=== PATIENT | female | born 1930 | race Caucasian/White ===

== ENCOUNTER 2016-09-14 15:02 | Inpatient (IN) | payer OTHER, BC ==
[~2016-09-14] VITALS: Ht 157.5 cm; Wt 54.8 kg
[~2016-09-14 15:02] MED LIST: ASPIRIN81 M2 PO; BUPROPION HCL75 MG PO; BUSPAR10 MG PO; COSOPT EYE DROPS5 ML BOTH EYES; DEPAKOTE SPRIN125 MG PO; GLUCOPHAGE500 MG PO; HYDRALAZINE HCL25 MG PO; LISINOPRIL30 MG PO; MACROBID100 MG PO; MICRONASE1.25 MG PO; PROBIOTIC1 EAC1 PO; PROTONIX40 MG PO; RISAMINE OINTM113 GM TP; SYNTHROID88 MCG PO; VITAMIN D-32000 UNI2 PO; XALATAN2.5 ML BOTH EYES; ZOFRAN ODT4 MG PO
[2016-09-14 15:33] LABS: HEMATOCRIT 47.9 % (36.0-46.0); MCH 28.3 PG (29.0-34.0); MCHC 31.1 G/DL (30.0-36.0); MCV 91.1 FL (83-99); NRBC (%) 0.2 /100 WBC (0-0); RBC DIS.WIDTH-CV 14.6 % (11.8-14.6); RBC DIS.WIDTH-SD 49.2 % (39-53); RED BLOOD COUNT 5.26 M/uL (3.80-5.20); WHITE BLOOD COUNT 10.6 K/uL (4.1-10.2)
[2016-09-14 15:56] LABS: CHLORIDE 104 mEq/L (99-109); POTASSIUM 3.8 mEq/L (3.7-5.4); SODIUM 142 mEq/L (136-147)
[2016-09-14 15:57] LABS: GLUCOSE 268 mg/dL (70-99)
[2016-09-14 15:58] LABS: TROP-I INTERPRETATION NEGATIVE; TROPONIN-I 0.04 ng/mL (0.0-0.30)
[2016-09-14 15:59] LABS: ANION GAP 20 MEQ/L (2-14)
[2016-09-14 16:01] LABS: GFR ESTIMATE (CALCULATED) 41 mL/min/
[2016-09-14 16:02] LABS: UREA NITROGEN (BUN) 43 mg/dL (9-23)
[2016-09-14 16:56] LABS: PLATELET CLUMPS PRESENT - PLATELET COUNT APPEARS INCREASED; PLATELET COUNT UNABLE TO REPORT K/uL (156-360)
[2016-09-14] MEDS ORDERED: DEPAKOTE500 MG PO (17:49)
[2016-09-14] MEDS ORDERED: DEPAKOTE250 MG PO (17:49)
[2016-09-14] MEDS ORDERED: TRUSOPT5 ML BOTH EYES (17:50)
[2016-09-14] MEDS ORDERED: CALMOSEPTINE O120 GM TP (17:51)
[2016-09-14] MEDS ORDERED: TRAMADOL HCL50 MG PO (17:51)
[2016-09-14] MEDS ORDERED: MIRALAX255 GM PO (17:52)
[2016-09-14] MEDS ORDERED: TYLENOL REGULA325 MG PO (17:52)
[2016-09-14] MEDS ORDERED: LORAZEPAM0.5 MG PO (17:52)
[2016-09-14] MEDS ORDERED: ROBITUSSIN100 MG/5 M PO (17:53)
[2016-09-14] MEDS ORDERED: DIAPER RASH57 GM TP (17:54)
[2016-09-14 20:46] VITALS: BP 89/50
[2016-09-15 06:17] LABS: POINT-OF-CARE METER ID UU13113725
[2016-09-15 07:22] LABS: HEMATOCRIT 41.3 % (36.0-46.0); MCH 27.9 PG (29.0-34.0); MCHC 30.5 G/DL (30.0-36.0); MCV 91.4 FL (83-99); NRBC (%) 0.4 /100 WBC (0-0); PLATELET COUNT 273 K/uL (156-360); RBC DIS.WIDTH-CV 14.8 % (11.8-14.6); RED BLOOD COUNT 4.52 M/uL (3.80-5.20)
[2016-09-15 07:28] LABS: WHITE BLOOD COUNT 7.1 K/uL (4.1-10.2)
[2016-09-15 07:34] LABS: ALKALINE PHOSPHATASE 34 IU/L (3-129); ANION GAP 15 MEQ/L (2-14); CHLORIDE 106 MEQ/L (99-109); POTASSIUM 4.3 MEQ/L (3.7-5.4); SAMPLE HEMOLYSIS CHECK 0; SAMPLE ICTERIC CHECK 0; SAMPLE LIPEMIA CHECK 0; SODIUM 142 MEQ/L (136-147); TOTAL BILIRUBIN 0.8 MG/DL (0.0-1.0); UREA NITROGEN (BUN) 52 mg/dL (9-23)
[2016-09-15 07:35] LABS: GFR ESTIMATE (CALCULATED) 27 mL/min/; GLUCOSE 114 mg/dL (70-99)
[2016-09-15 08:25] VITALS: BP 95/47
== END 2016-09-15 15:45 | DRG 177 ==
LOC: EME → EDBD 15:02 → EDOF 16:40 → 5EAST 16:40
PROVIDERS: Emergency Medicine; Internal Medicine
PROC: 5A0935Z Assistance with Respiratory Ventilation, Less than 24 Consecutive Hours (ICD-10-PCS; principal; 2016-09-14)
DX: J69.0 Pneumonitis due to inhalation of food and vomit (principal); I95.9 Hypotension, unspecified; E11.9 Type 2 diabetes mellitus without complications; I10 Essential (primary) hypertension; E03.9 Hypothyroidism, unspecified; G91.2 (Idiopathic) normal pressure hydrocephalus; J96.01 Acute respiratory failure with hypoxia; F41.9 Anxiety disorder, unspecified; K21.9 Gastro-esophageal reflux disease without esophagitis; F03.90 Unspecified dementia, unspecified severity, without behavioral disturbance, psychotic disturbance, mood disturbance, and anxiety; F32.9 Major depressive disorder, single episode, unspecified; J34.1 Cyst and mucocele of nose and nasal sinus; Z66 Do not resuscitate; G31.9 Degenerative disease of nervous system, unspecified; I25.10 Atherosclerotic heart disease of native coronary artery without angina pectoris; Z88.0 Allergy status to penicillin; I69.320 Aphasia following cerebral infarction; Z87.891 Personal history of nicotine dependence
CPT/HCPCS: 71010; 80048; 80053; 82948; 84484; 85027; 94640; 94640 76; 94799; 99202; 99281; 99285; J1815; J1956; J2270; J2405; J7030